=== PATIENT | female | born 1955 | race Caucasian/White ===

== ENCOUNTER 2019-11-07 14:39 | Outpatient (CLI) | payer OTHER, SELFPAY ==
--- NOTE | ~2019-11-07 | CT_ITS ---
EXAMINATION: CT soft tissue neck w con DATE: 11/07/2019 15:16 INDICATION: Sialoadenitis. TECHNIQUE: Computed tomography (CT) of the neck was performed with 75 mL Omnipaque 350 intravenous co ntrast. Automated exposure control and iterative reconstruction technique were employed. The dose-mervat gth product was 574.75 mGy-cm. COMPARISON: None FINDINGS: The lungs demonstrate mild atelectasis. There are no pathologically enlarged lymph nodes. T here are calcifications in the palatine tonsils. There is no sialolith. The major salivary glands are unremarkable. There is mild cervical spondylosis. IMPRESSION: 1. Normal major salivary glands. Reviewed, dictated and finalized at location A.
[2019-11-07 15:26] LABS: Estimated Glomerular Filt Rate > 60
== END 2019-11-07 14:40 | disposition home or self-care (01) ==
PROVIDERS: Visit Provider Otolaryngology
DX: K11.20 Sialoadenitis, unspecified (principal)
CPT/HCPCS: 36415; 70491; Q9967